=== PATIENT | male | born 1985 | race Caucasian/White ===

== ENCOUNTER 2020-11-28 07:38 | Emergency (ER) | payer MEDICAID ==
[~2020-11-28] VITALS: Ht 170.2 cm; Wt 84.1 kg
[2020-11-28 07:47] VITALS: BP 121/83
--- NOTE | 2020-11-28 08:26 | NUR ---
SUPERVISOR HISTOLOGY: PT TO ROOM FROM STEVE JARRELL
--- NOTE | 2020-11-28 08:36 | NUR ---
INITNAL CONTACT WITH PT: NEED ALBUTEROL INHALER REFILL. HX ASTHMA. PT DENIES SOB NOW, STATES SOME WHEEZING. ARAVIND BENITO TO BEDSIDE FOR EVALUATION
--- NOTE | 2020-11-28 08:50 | NUR ---
Patient given discharge instructions and they have confirmed that they understand the instructions. Patient ambulatory with steady gait. NAD, all questions answered appropriately, denies additional needs at this time. No personal belongings left in room after discharge.
== END 2020-11-28 08:51 | disposition home or self-care (01) ==
LOC: ED 08:40
DX: J45.30 Mild persistent asthma, uncomplicated (principal); Z76.0 Encounter for issue of repeat prescription
CPT/HCPCS: 99281

== ENCOUNTER 2021-01-22 09:33 | Emergency (ER) | payer MEDICAID ==
[~2021-01-22] VITALS: Ht 177.8 cm; Wt 80.4 kg
[2021-01-22 09:45] VITALS: BP 109/62
== END 2021-01-22 10:05 | disposition home or self-care (01) ==
LOC: ED 09:50
DX: B34.9 Viral infection, unspecified (principal); Z20.822 Contact with and (suspected) exposure to COVID-19; J45.909 Unspecified asthma, uncomplicated
CPT/HCPCS: 99283; U0003; U0005